=== PATIENT | female | born 1970 | race Caucasian/White ===

== ENCOUNTER 2019-05-26 19:44 | Emergency (ER) | payer SELFPAY ==
[2006-12-03 16:21] VITALS: BP 129/80
[~2019-05-26] VITALS: Ht 165.1 cm; Wt 68.2 kg
[~2019-05-26 19:44] MED LIST: CYMBALTA 60MG60 MG; INSULIN PUMP; LANTUS100 U/ML; NOVOLOG100 U/ML SQ; PERCOCET 325 MG1 TA2 PO
[2019-05-26 20:15] VITALS: TEMP 97.9
[2019-05-26] MEDS ORDERED: NEURONTIN300 MG/CAP PO (20:15)
[2019-05-26] MEDS ORDERED: WELLBUTRIN 100100 MG PO (20:15)
[2019-05-26] MEDS ORDERED: PROZAC40 MG PO ×2 (20:15→20:39)
[2019-05-26] MEDS ORDERED: BUSPAR10 MG PO (20:15)
[2019-05-26] MEDS ORDERED: BUSPAR DIVIDOSE15 MG PO (20:15)
[2019-05-26 20:39] VITALS: BP 163/83
[2019-05-26] MEDS ORDERED: DOXYCYCLINE 10100 MG PO (20:39)
[2019-05-26] MEDS ORDERED: PREDNISONE20 MG PO (20:39)
[2019-05-26 21:30] VITALS: PULSE 80
== END 2019-05-26 21:30 | disposition home or self-care (01) ==
LOC: COL.ER 19:44
DX: L29.9 Pruritus, unspecified (principal); E11.9 Type 2 diabetes mellitus without complications; F32.9 Major depressive disorder, single episode, unspecified; F41.9 Anxiety disorder, unspecified; Z79.4 Long term (current) use of insulin
CPT/HCPCS: J7512